=== PATIENT | female | born 1935 | race Two or more races ===

== ENCOUNTER 2017-07-26 01:46 | Inpatient (IN) | payer MEDICARE, MEDICAID ==
[~2017-07-26] VITALS: Ht 149.9 cm; Wt 82.1 kg
[2017-07-26] VITALS (7 sets, daily range): BP systolic 147–178; BP diastolic 66–85
[~2017-07-26 01:46] MED LIST: CLAR250T PO; MED4 GT
[2017-07-26] MEDS ORDERED: METHYLPREDNISOLONE SOD SUCC 125 MG/2 ML VIAL IV STA (01:51)
[2017-07-26] MEDS ORDERED: ALBUTEROL (0.083%) 2.5MG/3ML NEB HHN STA (01:51)
[2017-07-26] MEDS ORDERED: IPRATROPIUM BROMIDE (0.02%) 0.5MG/2.5ML NEB HHN STA (01:51)
[2017-07-26] MEDS ORDERED: SODIUM CHLORIDE 0.9% 1000ML BAG (SEPSIS BOLUS) IV ONE (02:45)
[2017-07-26 03:12] LABS: BASOPHILS % 0.3 % (0.0-2.0); EOSINOPHILS % 0.1 % (0.0-5.0); HEMATOCRIT. 37.1 % (36.0-48.0); HEMOGLOBIN. 12.6 g/dL (12.0-16.0); LYMPHOCYTES % 37.6 % (20.0-50.0); MEAN CORPUSCULAR HEMOGLOBIN 30.1 pg (28.0-32.0); MEAN CORPUSCULAR VOLUME 88.3 fL (81.0-99.0); MEAN PLATELET VOLUME 8.8 fl (7.4-10.4); MONOCYTES % 3.9 % (2.0-8.0); NEUTROPHILS % 58.1 % (40.0-76.0); PLATELET 253 x1000/uL (130-400); RED BLOOD CELL COUNT 4.19 mill/uL (4.2-5.4); RED CELL DISTRIBUTION WIDTH 13.9 % (11.6-14.6)
[2017-07-26 03:18] LABS: PROTHROMBIN TIME 10.5 sec (9.4-11.6)
[2017-07-26 04:11] LABS: CHLORIDE 107 mEq/L (98-107)
[2017-07-26 04:14] LABS: TROPONIN I < 0.02 ng/mL (0.00-0.04)
[2017-07-26 05:53] LABS: CLARITY URINE CLEAR (CLEAR); COLOR URINE YELLOW (YELLOW); KETONES URINE NEGATIVE (NEGATIVE); LEUKOCYTE ESTERASE URINE NEGATIVE (NEGATIVE); NITRITE URINE NEGATIVE (NEGATIVE); OCCULT BLOOD URINE TRACE (NEGATIVE); PH URINE 5.5 (4.5-8.0); PROTEIN URINE NEGATIVE (NEGATIVE); SPECIFIC GRAVITY URINE 1.013 (1.005-1.030); UROBILINOGEN URINE 0.2 E.U./dL (0.2-1.0)
[2017-07-26] MEDS ORDERED: INDA1.255 PO (10:07)
[2017-07-26] MEDS ORDERED: LOSA50TA20 PO (10:07)
[2017-07-26] MEDS ORDERED: ASPI-986 PO (10:07)
[2017-07-26] MEDS ORDERED: CELE200C PO (10:07)
[2017-07-26] MEDS ORDERED: METF500T4 PO (10:07)
[2017-07-26] MEDS ORDERED: OCD PO (10:07)
[2017-07-26] MEDS ORDERED: ATOR10TA69 PO (10:07)
[2017-07-26] MEDS ORDERED: GLUC100017 PO (10:07)
[2017-07-26] MEDS ORDERED: ALBU90AE IH (10:07)
[2017-07-26] MEDS ORDERED: DESL5TAB PO (10:07)
[2017-07-26] MEDS ORDERED: GABA-529 PO (10:07)
[2017-07-26] MEDS ORDERED: OMEG1CAP94 PO (10:07)
[2017-07-26] MEDS ORDERED: ONDANSETRON HCL 4MG/2ML VIAL IV PRN (11:15)
[2017-07-26] MEDS ORDERED: LEVOFLOXACIN 500MG TABLET PO NR (11:15)
[2017-07-26] MEDS ORDERED: NA PHOS,M-B/NA PHOS,DI-BA ENEMA 118ML PR PRN (11:15)
[2017-07-26] MEDS ORDERED: INDAPAMIDE 1.25MG TABLET PO SCH (11:15)
[2017-07-26] MEDS ORDERED: DIPHENHYDRAMINE 50MG/ML VIAL IV PRN (11:15)
[2017-07-26] MEDS ORDERED: GUAIFENESIN 200MG/10ML SUGAR FREE UDC PO PRN ×2 (11:15→19:00)
[2017-07-26] MEDS ORDERED: METFORMIN HCL 500MG TABLET PO SCH (11:15)
[2017-07-26] MEDS ORDERED: MAGNESIUM/ALUMINUM HYDROXIDE/SIMETHICONE 30ML UDC PO PRN (11:15)
[2017-07-26] MEDS ORDERED: ACETAMINOPHEN 325MG TABLET PO PRN (11:15)
[2017-07-26] MEDS ORDERED: CLONIDINE 0.1MG TABLET PO PRN (11:15)
[2017-07-26] MEDS ORDERED: ACETAMINOPHEN 650MG/20.3ML UDC GT PRN (11:15)
[2017-07-26] MEDS ORDERED: IPRATROPIUM/ALBUTEROL 0.5-3(2.5)MG/3ML NEB INH PRN (11:15)
[2017-07-26] MEDS ORDERED: ACETAMINOPHEN 650MG SUPP PR PRN (11:15)
[2017-07-26] MEDS ORDERED: HYDROCODONE/ACETAMINOPHEN 5/325MG TABLET PO PRN (11:15)
[2017-07-26] MEDS ORDERED: DOCUSATE SODIUM 100MG CAPSULE PO PRN (11:15)
[2017-07-26] MEDS: LOSARTAN POTASSIUM 50 MG TABLET PO SCH ×2 (11:58→17:05)
[2017-07-26] MEDS: ATORVASTATIN CALCIUM 10MG TABLET PO SCH (11:58)
[2017-07-26] MEDS: METHYLPREDNISOLONE SOD SUCC 125 MG/2 ML VIAL IV SCH ×3 (11:59→23:15)
[2017-07-26] MEDS: ASPIRIN 325MG TABLET PO SCH (11:59)
[2017-07-26] MEDS: GABAPENTIN 100MG CAPSULE PO SCH ×3 (11:59→17:05)
[2017-07-26] MEDS ORDERED: LEVOFLOXACIN 250MG TABLET PO SCH (12:00)
[2017-07-26] MEDS: INDAPAMIDE 1.25MG TABLET PO SCH (13:29)
[2017-07-26] MEDS ORDERED: SODIUM CHLORIDE 0.9% INJ 3ML FLUSH IVF SCH (14:00)
[2017-07-26] MEDS: IPRATROPIUM/ALBUTEROL 0.5-3(2.5)MG/3ML NEB INH SCH ×2 (14:14→20:32)
[2017-07-26 14:47] LABS: CLARITY URINE CLEAR (CLEAR); COLOR URINE YELLOW (YELLOW); KETONES URINE NEGATIVE (NEGATIVE); LEUKOCYTE ESTERASE URINE NEGATIVE (NEGATIVE); NITRITE URINE NEGATIVE (NEGATIVE); OCCULT BLOOD URINE NEGATIVE (NEGATIVE); PROTEIN URINE NEGATIVE (NEGATIVE); SPECIFIC GRAVITY URINE 1.028 (1.005-1.030); UROBILINOGEN URINE 0.2 E.U./dL (0.2-1.0)
[2017-07-26 15:31] LABS: *AMPHETAMINES SCREEN URINE NEGATIVE (NEGATIVE); *BARBITURATES SCREEN URINE NEGATIVE (NEGATIVE); *BENZODIAZEPINES SCREEN URINE NEGATIVE (NEGATIVE); *COCAINE SCREEN URINE NEGATIVE (NEGATIVE); CANNABINOID URINE SCREEN NEGATIVE (NEGATIVE); METHADONE URINE SCREEN NEGATIVE (NEGATIVE); OPIATES URINE SCREEN NEGATIVE (NEGATIVE); PHENCYCLIDINE URINE SCREEN NEGATIVE (NEGATIVE)
[2017-07-26 16:18] LABS: BASOPHILS % 0.1 % (0.0-2.0); HEMATOCRIT. 34.9 % (36.0-48.0); HEMOGLOBIN. 11.7 g/dL (12.0-16.0); LYMPHOCYTES % 10.5 % (20.0-50.0); MEAN CORPUSCULAR HEMOGLOBIN 29.6 pg (28.0-32.0); MEAN CORPUSCULAR VOLUME 88.6 fL (81.0-99.0); MONOCYTES % 2.6 % (2.0-8.0); NEUTROPHILS % 86.8 % (40.0-76.0); PLATELET 236 x1000/uL (130-400); RED BLOOD CELL COUNT 3.94 mill/uL (4.2-5.4); RED CELL DISTRIBUTION WIDTH 14.2 % (11.6-14.6)
[2017-07-26 16:34] LABS: CHLORIDE 105 mEq/L (98-107)
[2017-07-26 16:42] LABS: TROPONIN I 0.05 ng/mL (0.00-0.04)
[2017-07-26] MEDS ORDERED: DEXTROSE 50% WATER 50ML SYRINGE IV PRN (18:00)
[2017-07-26] MEDS ORDERED: CALCIUM CARBONATE/VITAMIN D3 500MG TABLET PO SCH (18:00)
[2017-07-26] MEDS ORDERED: MELOXICAM 7.5MG TABLET PO SCH (19:00)
[2017-07-26] MEDS ORDERED: GUAIFENESIN/CODEINE 200-20MG/10ML UDC PO PRN (19:00)
[2017-07-26] MEDS ORDERED: PNEUMOCOCCAL 23-VAL P-SAC VAC 0.5 ML IM ONE (19:30)
[2017-07-26] MEDS ORDERED: INFLUENZA VIRUS VACCINE 0.5ML SYR IM ONE (19:30)
[2017-07-26] MEDS: BLOOD SUGAR DIAGNOSTIC STRIP TEST SCH (21:00)
[2017-07-26] MEDS: INSULIN LISPRO 100 UNITS/ML SUBCUT SCH (22:39)
[2017-07-27] VITALS: BP 161/64
[2017-07-27] MEDS: IPRATROPIUM/ALBUTEROL 0.5-3(2.5)MG/3ML NEB INH SCH ×2 (00:34→11:59)
[2017-07-27 02:00] VITALS: BP 148/82
[2017-07-27 04:00] VITALS: BP 157/85
[2017-07-27] MEDS: METHYLPREDNISOLONE SOD SUCC 125 MG/2 ML VIAL IV SCH ×2 (05:25→12:49)
[2017-07-27 06:00] VITALS: BP 150/82
[2017-07-27 07:26] LABS: HEMATOCRIT. 34.2 % (36.0-48.0); HEMOGLOBIN. 11.6 g/dL (12.0-16.0); MEAN CORPUSCULAR HEMOGLOBIN 29.6 pg (28.0-32.0); MEAN CORPUSCULAR VOLUME 87.2 fL (81.0-99.0); MEAN PLATELET VOLUME 8.8 fl (7.4-10.4); PLATELET 262 x1000/uL (130-400); RED BLOOD CELL COUNT 3.92 mill/uL (4.2-5.4); RED CELL DISTRIBUTION WIDTH 14.3 % (11.6-14.6)
[2017-07-27 07:35] LABS: CHLORIDE 107 mEq/L (98-107)
[2017-07-27 07:45] LABS: HDL CHOLESTEROL 73 mg/dL (40-59); LDL CHOLESTEROL 55 mg/dL (5-100)
[2017-07-27] MEDS: BLOOD SUGAR DIAGNOSTIC STRIP TEST SCH ×2 (08:04→12:06)
[2017-07-27] MEDS: LOSARTAN POTASSIUM 50 MG TABLET PO SCH (08:06)
[2017-07-27] MEDS: ASPIRIN 325MG TABLET PO SCH (08:06)
[2017-07-27] MEDS: INDAPAMIDE 1.25MG TABLET PO SCH (08:06)
[2017-07-27] MEDS: ATORVASTATIN CALCIUM 10MG TABLET PO SCH (08:06)
[2017-07-27] MEDS: GABAPENTIN 100MG CAPSULE PO SCH ×2 (08:06→12:49)
[2017-07-27] MEDS: INSULIN LISPRO 100 UNITS/ML SUBCUT SCH ×2 (08:07→12:51)
[2017-07-27 09:19] LABS: BG CARBOXYHEMOGLOBIN 0.6 % (0.5-1.5); BG DEOXYHEMOGLOBIN 3.9 % (0.0-5.0); BG FRACTION INSPIRED OXYGEN 21; BG HCO3 ACT 20.9 mmol/L (22.0-26.0); BG METHEMOGLOBIN 0.2 % (0.0-1.5); BG OXYGEN SATURATION 96.1 % (92.0-98.5); BG OXYHEMOGLOBIN 95.3 % (94.0-97.0); BG PCO2 33.8 mmHg (35.0-45.0); BG PH 7.409 (7.350-7.450); BG PO2 80.9 mmHg (75.0-100.0); BG SAMPLE SITE RIGHT RADIAL; BG TOTAL HEMOGLOBIN 12.4 g/dL (12.0-18.0); BG VENT MODE ROOM AIR
[2017-07-27] MEDS ORDERED: LEVOFLOXACIN 250MG TABLET PO SCH (11:00)
[2017-07-27 14:17] LABS: PLATELET ESTIMATE NORMAL
[2017-07-27] MEDS ORDERED: BUDESONIDE 0.5MG/2ML NEB HHN SCH (15:00)
[2017-07-27 16:10] VITALS: BP 136/72
[2017-07-27] MEDS ORDERED: METHYLPREDNISOLONE SOD SUCC 40 MG/ML VIAL IV SCH (18:00)
[2017-07-27] MEDS ORDERED: TRAZODONE HCL 50MG TABLET PO SCH (21:00)
== END 2017-07-27 16:15 | disposition home or self-care (01) | DRG 189 ==
LOC: EDSEX 01:46 → ER 02:13 → EDBEDREQ 02:44 → EDBEDREQTM 02:44 → 5EST 03:07 → EDBEDREQ 03:09 → EDBEDREQTM 03:09 → CANRESERV 04:26 → ENRESERV 04:26 → 5EST 10:21
PROVIDERS: ADMIT Family Medicine; ATTEND Family Medicine
PROC: 5A09357 Assistance with Respiratory Ventilation, Less than 24 Consecutive Hours, Continuous Positive Airway Pressure (ICD-10-PCS; principal; 2017-07-26)
PROC: 5A09357 Assistance with Respiratory Ventilation, Less than 24 Consecutive Hours, Continuous Positive Airway Pressure (ICD-10-PCS; 2017-07-27)
DX: J96.01 Acute respiratory failure with hypoxia (principal); E87.2 Acidosis; J44.1 Chronic obstructive pulmonary disease with (acute) exacerbation; E11.9 Type 2 diabetes mellitus without complications; E44.1 Mild protein-calorie malnutrition; D72.829 Elevated white blood cell count, unspecified; E66.9 Obesity, unspecified; G47.30 Sleep apnea, unspecified; E78.5 Hyperlipidemia, unspecified; Z60.2 Problems related to living alone; T38.0X5A Adverse effect of glucocorticoids and synthetic analogues, initial encounter; I11.9 Hypertensive heart disease without heart failure; Z86.73 Personal history of transient ischemic attack (TIA), and cerebral infarction without residual deficits; Z90.49 Acquired absence of other specified parts of digestive tract; Z79.899 Other long term (current) drug therapy; Z79.82 Long term (current) use of aspirin; Y92.89 Other specified places as the place of occurrence of the external cause
CPT/HCPCS: 36415; 36600; 71045; 80053; 80061; 80305; 81003; 82375; 82805; 82962; 83605; 83880; 84484; 85025; 85610; 87040; 87086; 90686; 90732; 93005; 94640; 94644; 94660; 96374; 99291; J1815; J2930; J7030; J7611; J7620